=== PATIENT | male | born 1990 | race Caucasian/White ===

== ENCOUNTER 2023-03-28 10:10 | Emergency (ER) | payer OTHER, SELFPAY ==
[2023-03-28 10:30] VITALS: BP 125/87; PULSE 85; RESP 20; TEMP 36.8; O2SAT 100
--- NOTE | 2023-03-28 10:46 | ED.EYEPROB ---
HPI - Eye Problem General Chief complaint: Eye Problems Stated complaint: EYE REDNESS Time Seen by Provider: 03/28/23 10:47 Source: patient Mode of arrival: ambulatory Limitations: no limitations History of Present Illness HPI Narrative: 32-year-old male presents with complaint of drainage, bilateral eye redness for 1 day. No vision changes. Does not were contacts. Reports that his and [id number] also have bacterial conjunctivitis. No other complaints today. States he woke up this morning and both eyes were crusted shut. All systems reviewed and negative except as noted above. Related Data Allergies Allergy/AdvReac Type Severity Reaction Status Date / Time No Known Allergies Allergy Verified 03/28/23 10:29 Review of Systems Review of Systems: CONSTITUTIONAL: Denies fever, chills, or sweats. EYES: Denies visual changes reports bilateral eye redness, discharge. ENT: Denies rhinorrhea, congestion, sore throat, or otalgia. CARDIOVASCULAR: Denies chest pain, palpitations, or edema. RESPIRATORY: Denies cough or dyspnea. GASTROINTESTINAL: Denies abdominal pain, nausea, vomiting, or diarrhea. GENITOURINARY: Denies dysuria or hematuria. SKIN: Denies rash or itching. MUSCULOSKELETAL: Denies back pain, joint pain, or myalgia. NEUROLOGIC: Denies headache, numbness, or weakness. PSYCHIATRIC: Denies anxiety or depression. All other systems reviewed are negative, except as documented in HPI. PMFSH Comments At time of signature, agree with nursing past medical, surgical, social and family history. There is no relevant family history pertinent to the presenting complaint. Exam Narrative: GENERAL: This is a well-nourished, well-developed patient, in no apparent distress. HEAD: normocephalic, atraumatic. EYES: PERRL. Mild erythema to sclera and conjunctiva of bilateral eyes. Small amount of purulent drainage bilaterally. Vision is grossly intact. EARS: External ears normal NOSE: External nose normal NECK: Neck supple, non-tender without lymphadenopathy, masses or thyromegaly. CARDIOVASCULAR: Regular rate and rhythm without murmurs, gallops, or rubs. RESPIRATORY: Clear to auscultation. Breath sounds equal bilaterally. No wheezes, rales, or rhonchi. SKIN: warm, Dry, intact with no suspicious lesions or rash, good texture and turgor. NEURO: awake, alert, and oriented to person, place and time. There were no obvious focal neurologic abnormalities. EXTREMITIES: No joint tenderness, effusion, or edema noted. Course Course Level of Care: Express Care Visit Vital Signs Vital signs: Vital Signs Temperature 36.8 C 03/28/23 10:30 Pulse Rate 85 03/28/23 10:30 Respiratory Rate 20 03/28/23 10:30 Blood Pressure 125/87 03/28/23 10:30 Pulse Oximetry 100 03/28/23 10:30 Temperature 36.8 C 03/28/23 10:30 Pulse Rate 85 03/28/23 10:30 Respiratory Rate 20 03/28/23 10:30 Blood Pressure 125/87 03/28/23 10:30 Pulse Oximetry 100 03/28/23 10:30 Reviewed MDM - Eye Problem MDM Narrative Medical decision making narrative: Patient is aware of diagnosis, understands and agrees to treatment plan. Anticipatory guidance given. Patient agrees to follow-up as directed and is aware of reasons to seek care at the emergency department. Portions of this record may have been created with voice recognition software Differential Diagnosis Differential diagnosis: Likely conjunctivitis Discharge Plan Discharge Clinical Impression: Acute bacterial conjunctivitis of both eyes Patient Disposition: Home, Self-Care Condition: Stable Instructions: Antibiotic Form, Conjunctivitis (ED) Additional Instructions: Place antibiotic eyedrops as prescribed. Wash hands before and after placing eye drops. Practice good handwashing to prevent spread of infection. Follow-up your primary care physician if symptoms are not improving. Prescriptions: New polymyxin B sulf-trimethoprim 10,000 unit-
== END 2023-03-28 11:05 | disposition home or self-care (01) ==
PROVIDERS: Emergency Provider Nurse Practitioner Family
DX: H10.89 Other conjunctivitis (principal)
CPT/HCPCS: 99213; G0463